=== PATIENT | female | born 1950 | race Caucasian/White ===

== ENCOUNTER 2016-10-29 07:21 | Emergency (ER) | payer MEDICARE, OTHER ==
--- NOTE | 2016-10-29 09:12 | ER NURSING DOCUMENTATION ---
Nurse's Notes [facility] Name:Cathy Vela Age:66 yrs Sex:Female :1950 Arrival Date:10/29/2016 Time:07:21 Bed2 Private MD: Diagnosis:Retinal Detachment Presentation: 10/29 07:25 Transition of care: patient was not received from another setting of care. tg 07:25 Acuity: MATT 4 tg 07:25 Method Of Arrival: Private Vehicle tg 07:33 Presenting complaint: Patient states: Flashes, floaters, and slight pressure in right tg eye since yesterday. No trauma, no loss of vision. Triage Assessment: 07:34 General: Appears in no apparent distress, Behavior is cooperative, pleasant. Pain: tg Complains of pain in right eye Quality of pain is described as pressure. EENT: Sclera/Cornea are clear in right eye and left eye. Neuro: Level of Consciousness is awake, alert, Pupils are PERRLA. Respiratory: Respiratory effort is even, unlabored. Derm: Skin is pink, warm & dry. Historical: - Allergies: No known drug Allergies; - Home Meds: 1. Fish Oil oral - PMHx: None; - PSHx: None; - Tetanus: < 10 years. - Ebola Screening: : Patient negative for fever greater than or equal to 101.5 degrees Fahrenheit, and additional compatible Ebola Virus Disease symptoms. Patient denies exposure to infectious person. Patient denies travel to an Ebola-affected area in the 21 days before illness onset. No symptoms or risks identified at this time. . - Immunization history: Flu Vaccine < 1 year. - Social history: Smoking status: Patient states was never smoker of tobacco. Screenin:36 Infectious Disease Risk Unable to Obtain. Abuse screen: Denies threats or abuse. Denies tg injuries from another. Nutritional screening: No deficits noted. Assessment: 07:36 See Triage Assessment done by same RN. tg Vital Signs: 07:35 BP 158 / 88; Pulse 82; Resp 16; Pulse Ox 96% on R/A; Weight 65.77 kg (R); Height 64 in. tg (162.56 cm); Pain 1/10; 07:35 Body Mass Index 24.89 (65.77 kg, 162.56 cm) tg Visual Acuity: 07:35 Left Eye Visual acuity 20/25, Normal; Right Eye Visual acuity 20/20, Normal; With tg Lenses; ED Course: 07:24 Patient arrived in ED. ama 07:25 Triage completed. tg 07:30 Notified ED Physician of patient's arrival and chief complaint. Dr. Singh notified. tg 07:33 Ralph Diaz, MIRIAM is Primary Nurse. tg 07:37 Valuables Remains with patient. tg 07:49 Ford Singh MD is Attending Physician. tl1 08:18 Melvin Keenan MD is Referral Physician. tl1 Administered Medications: No medications were administered Outcome: 08:19 Discharge ordered by . tl1 08:33 Discharged to home ambulatory, with family. tg 08:33 Condition: unchanged 08:33 Condition: Dr. Keenan will come see pt in the ED 08:33 Discharge Assessment: Patient awake and alert. 08:33 Instructed on discharge instructions, follow up and referral plans. 09:11 Patient left the ED. tg Signatures: Ralph Diaz RN RN tg Kaushik Johnson, Reg Reg Ford Cortez MD MD tl1
--- NOTE | 2016-10-29 09:12 | ER PHYSICIAN DOCUMENTATION ---
Physician Documentation [facility] Name:Cathy Vela Age:66 yrs Sex:Female :1950 Arrival Date:10/29/2016 Time:07:21 Bed2 Private MD: Ford May Disposition: 10/29/16 08:19 Discharged to Home/Self Care. Impression: Retinal Detachment. - Condition is Good. - Discharge Instructions: RETINAL DETACHMENT. - Medical Reconciliation form form. - Follow up: Melvin Keenan MD; When: Today; Reason: Recheck today's complaints, Continuance of care. - Problem is new. - Symptoms have improved. HPI: 10/29 07:50 This 66 yrs old Female presents to ER via Private Vehicle with complaints of tl1 Eye Problem - R. 08:21 The patient has not experienced similar symptoms in the past. The patient has not tl1 recently seen a physician. She was fine until last evening when she noted a floater like a "worm" or a "fly" in the upper temporal aspect of the visual field of her right eye, followed by several curved flashing lights intermittently over about 2 minutes. No h/o migraines. She is mildly nearsighted. No change in visual acuity. No trauma. No left eye symptoms.. Historical: - Allergies: No known drug Allergies; - Home Meds: 1. Fish Oil oral - PMHx: None; - PSHx: None; - Tetanus: < 10 years. - Ebola Screening: : Patient negative for fever greater than or equal to 101.5 degrees Fahrenheit, and additional compatible Ebola Virus Disease symptoms. Patient denies exposure to infectious person. Patient denies travel to an Ebola-affected area in the 21 days before illness onset. No symptoms or risks identified at this time. . - Immunization history: Flu Vaccine < 1 year. - Social history: Smoking status: Patient states was never smoker of tobacco. ROS: 08:24 Eyes: Positive for floaters, photopsia, Negative for injury or acute deformity, blurry tl1 vision, discharge, foreign body sensation, pain, photophobia, redness. 08:24 All other systems are negative. Exam: 08:27 Visual Acuity: I have reviewed the nursing documentation. tl1 08:27 Constitutional: This is a well developed, well nourished patient who is awake, alert, tl1 and in no acute distress. 08:27 Head/Face: Normocephalic, atraumatic. 08:27 Eyes: Periorbital structures: appear normal, Pupils: no acute changes, equal, round, and reactive to light and accomodation, Extraocular movements: no acute changes, Conjunctiva: normal, Anterior chamber: Lids and lashes: appear normal, funduscopic exam reveals no acute changes, discs that are sharp, no retinal detachment, no appreciated A-V knicking, no evidence of cotton wool exudatates, no flame hemorrhages, Visual baker: no acute changes. 08:27 ENT: Exam is negative for 08:27 Neck: ROM/movement: is normal. 08:27 Cardiovascular: Rate: normal. 08:27 Respiratory: the patient does not display signs of respiratory distress, Respirations: normal. 08:27 Neuro: grossly normal. Vital Signs: 07:35 BP 158 / 88; Pulse 82; Resp 16; Pulse Ox 96% on R/A; Weight 65.77 kg (R); Height 64 in. tg (162.56 cm); Pain 1/10; 07:35 Body Mass Index 24.89 (65.77 kg, 162.56 cm) tg Visual Acuity: 07:35 Left Eye Visual acuity 20/25, Normal; Right Eye Visual acuity 20/20, Normal; With tg Lenses; MDM: 07:49 Patient medically screened. tl1 08:40 Differential diagnosis: posterior vitreous detachment, retinal detachment. Data tl1 reviewed: vital signs, nurses notes, and as a result, I will discharge patient. Counseling: I had a detailed discussion with the patient and/or guardian regarding: the historical points, exam findings, and any diagnostic results supporting the discharge/admit diagnosis, the need for outpatient follow up, to return to the emergency department if symptoms worsen or persist or if there are any questions or concerns that arise at home. Response to treatment: There is no appreciated change of the patient's symptoms at this time. Physician consultation: Melvin Keenan MD was called at 08:15, was contacted at 08:15, regarding patient's condition, need to come to ED to see patient, and will see patient in ED, shortly. 10/29 07:33 Order name: Visual Acuity; Complete Time: 07:33 tg Dispensed Medications: No medications were administered Signatures: Ralph Diaz, MIRIAM RN tg Ford Singh MD MD tl1
== END 2016-10-29 09:12 | disposition home or self-care (01) ==
LOC: ER 07:21
DX: H33.21 Serous retinal detachment, right eye (principal)
CPT/HCPCS: 99281; 99282